=== PATIENT | male | born 1985 | race Two or more races ===

== ENCOUNTER 2025-04-28 16:46 | Emergency (ER) | payer MEDICAID, OTHER ==
[~2025-04-28] VITALS: Ht 170.2 cm; Wt 80.2 kg
--- NOTE | 2025-04-28 17:12 | ED.PDOC ---
History of Present Illness HPI Comments 40-year-old male presents with a chief complaint of alcohol dehydration. Patient states that he drank heavily last night and was trying to rehydrate with oral electrolytes, but states that he got worried and wanted the hospital to rehydrate him. Patient has slight tremors and tingling to his hands. Chief Complaint: ETOH Time Seen by MD: 16:50 Reviewed Notes: Medications, Allergies Allergies: Coded Allergies: NO KNOWN ALLERGIES (Unverified , 04/28/25) Information Source: Patient Mode of Arrival: Ambulatory Severity: Moderate Timing: Hours Duration: Since onset Prehospital treatment: None Past Medical History PAST MEDICAL HISTORY: Denies Surgical History: Denies all surgeries Family History Family History: Reviewed,noncontributory to illness Social History Smoker: Non-Smoker Alcohol: Heavy Drugs: Denies Drug Use Lives In: Home Constitutional: denies: chills, diaphoresis, fatigue, fever, malaise, sweats, weakness, others EENTM: denies: blurred vision, double vision, ear bleeding, ear discharge, ear drainage, ear pain, ear ringing, eye pain, eye redness, hearing loss, mouth pain, mouth swelling, nasal discharge, nose bleeding, nose congestion, nose pain, photophobia, tearing, throat pain, throat swelling, voice changes, others Respiratory: denies: cough, hemoptysis, orthopnea, SOB at rest, shortness of breath, SOB with excertion, stridor, wheezing, others Cardiovascular: denies: chest pain, dizzy spells, diaphoresis, Dyspnea on exertion, edema, irregular heart beat, left arm pain, lightheadedness, palpitations, PND, syncope, others Gastrointestinal: denies: abdomen distended, abdominal pain, blood streaked bowels, constipated, diarrhea, dysphagia, difficulty swallowing, hematemesis, melena, nausea, poor appetite, poor fluid intake, rectal bleeding, rectal pain, vomiting, others Genitourinary: denies: burning, dysuria, flank pain, frequency, hematuria, incontinence, penile discharge, penile sore, pain, testicle pain, testicle swelling, urgency, others Neurological: denies: dizziness, fainting, headache, left sided numbness, left sided weakness, numbness, paresthesia, pre-existing deficit, right sided numbness, right sided weakness, seizure, speech problems, tingling, tremors, weakness, others Musculoskeletal: denies: back pain, gout, joint pain, joint swelling, muscle pain, muscle stiffness, neck pain, others Integumetry: denies: bruises, change in color, change in hair/nails, dryness, laceration, lesions, lumps, rash, wounds, others Allergic/Immunocompromised: denies: Difficulty Healing, Frequent Infections, Hives, Itching, others Hematologic/Lymphatic: denies: anemia, blood clots, easy bleeding, easy bruising, swollen glands, others Endocrine: denies: excessive hunger, excessive sweating, excessive thirst, excessive urination, flushing, intolerance to cold, intolerance to heat, u nexplained weight gain, unexplained weight loss, others Psychiatric: denies: anxiety, bipolar disorder, depression, hopeless, panic disorder, schizophrenia, sleepless, suicidal, others All Other Systems: Reviewed and Negative ( PER HPI) Physical Exam General Appearance: No Apparent Distress, Normal HEENT: Normal ENT Inspection, Pharynx Normal, TMs Normal Neck: Full Range of Motion, Non-Tender, Normal, Normal Inspection Respiratory: Chest Non-Tender, Lungs Clear, No Accessory Muscle Use, No Respiratory Distress, Normal Breath Sounds Cardiovascular: No Edema, No JVD, No Murmur, No Gallop, Normal Peripheral Pulses, Regular Rate/Rhythm Breast Exam: Deferred Gastrointestinal: No Organomegaly, Non Tender, No Pulsatile Mass, Normal Bowel Sounds, Soft Genitalia: Deferred Pelvic: Deferred Rectal: Deferred Extremities: No calf tenderness, Normal capillary refill, Normal inspection, Normal range of motion, Non-tender, No pedal edema Musculoskeletal : Apperance: Normal Neurologic: Alert, poker in II-XII nml as Tested, No Motor Deficits, Normal Affect, Normal Mood, No Sensory Deficits Cerebellar Function: Normal Reflexes: Normal Skin: Dry, Normal Color, Warm Lymphatic: No Adenopathy Was a procedure done? Was a procedure done?: No Differential Dx Considerations may include: alcohol intoxication., alcohol withdrawal. dehydration, anxiety X-Ray, Labs, Meds, VS Vital Signs Date Time Temp Pulse Resp B/P (MAP) Pulse Ox O2 Delivery O2 Flow Rate FiO2 04/28/25 17:30 101 20 99 Room Air* 0 21 04/28/25 16:55 99.2 83 16 130/57 (81) 99 99.2 Current Medications Medications (Trade) Dose Ordered Sig/Ana Route Start Time Stop Time Status Last Admin Sodium Chloride 500 ml @ 500 mls/hr Q1H ONCE IV 04/28/25 17:00 04/28/25 17:59 DC 04/28/25 17:21 Alprazolam (Xanax Tablet) 0.25 mg ONCE ONCE PO 04/28/25 17:45 04/28/25 17:46 DC 04/28/25 17:43 Time of 1ST Reevaluation: 17:20 Reevaluation 1ST: Unchanged Time of 2ND Reevaluation: 18:22 Reevaluation 2ND: Improved Patient Education/Counseling: Diagnosis, Treatment, Prognosis, Need For Follow Up Family Education/Counseling: No Family Present SEPSIS Sepsis Screen Vital Signs Date Time Temp Pulse Resp B/P (MAP) Pulse Ox O2 Delivery O2 Flow Rate FiO2 04/28/25 17:30 101 20 99 Room Air* 0 21 04/28/25 16:55 99.2 83 16 130/57 (81) 99 99.2 Medications Medications Dose Ordered Sig/Ana Route Start Time Stop Time Status Last Admin Dose Admin Alprazolam 0.25 mg ONCE ONCE PO 04/28/25 17:45 04/28/25 17:46 DC 04/28/25 17:43 Sodium Chloride 500 ml @ 500 mls/hr Q1H ONCE IV 04/28/25 17:00 04/28/25 17:59 DC 04/28/25 17:21 Departure 1 Departure Time of Disposition: 18:22 Impression: Primary Impression: Alcohol abuse Additional Impression: Anxiety Disposition: 01 HOME / SELF CARE / HOMELESS Condition: Good Discharged With: Self Critical Care Note Critical Care Time?: No Stability Stability form required: No Heart Score Heart Score: Heart Score Response (Comments) Value History N/A 0 EKG N/A 0 Age N/A 0 Risk Factors N/A 0 Troponin N/A 0 Total 0 I personally scribed for NICK LUKE MD ([email or web address]) on 04/28/25 at 17:12. Electronically submitted by Rogelio Bell ([email or web address]). NICK LUKE MD Apr 28, 2025 17:12
[2025-04-28] MEDS: SODIUM CHLORIDE 0.9% 500 ML IV ONE (17:21)
[2025-04-28 17:30] VITALS: PULSE 101; RESP 20; O2SAT 99
[2025-04-28] MEDS: ALPRAZolam 0.25 MG TAB PO ONE (17:43)
[2025-04-28 18:53] VITALS: BP 121/74; TEMP 98.4
[2025-04-28 18:54] VITALS: PULSE 76; RESP 20; O2SAT 99
--- NOTE | 2025-05-02 09:42 | ECG ---
[facility] Test Date: 2025-04-28 Test Time: 17:14:57 Pat Name: BRENDA BANUELOS Department: er Room: Gender: Supervisor [employer]: de : 1985 Requested By: NICK LUKE Order Number: [id number] Reading MD: Obey Weir Measurements Intervals [place] Rate: 73 P: 53 NV: 124 QRS: 68 QRSD: 84 T: 33 QT: 382 QTc: 421 Interpretive Statements Sinus arrhythmia Electronically Signed On 05-04-2025 9:35:57 PDT by Obey Weir Please click the below link to view image of tracing.
== END 2025-04-28 18:58 | disposition home or self-care (01) ==
LOC: ER 16:46
DX: F10.10 Alcohol abuse, uncomplicated (principal); F41.9 Anxiety disorder, unspecified; E86.0 Dehydration
CPT/HCPCS: 93005; 96360; 99283; J7040